=== PATIENT | male | born 1990 | race Two or more races ===

== ENCOUNTER 2022-07-08 03:34 | Emergency (ER) | payer MEDICAID, OTHER ==
[~2022-07-08] VITALS: Ht 172.7 cm; Wt 89.4 kg
[2022-07-08 04:10] VITALS: BP 153/75
--- NOTE | 2022-07-08 04:15 | NUR ---
EMT AT PT'S BEDSIDE TO CLEAN LAC TO R THUMB
[2022-07-08] MEDS ORDERED: LIDOCAINE 2% 20 ML MDV ONE (04:17)
[2022-07-08] MEDS ORDERED: TDAP [DIPH/PERTUSSIS/TET] 0.5 ML VIAL IM ONE ×2 (04:19→04:30)
--- NOTE | 2022-07-08 04:32 | NUR ---
DR BARBI CASTILLO AT PT'S BEDSIDE FOR SUTURES TO R THUMB
--- NOTE | 2022-07-08 04:45 | NUR ---
Patient discharged to [facility] custody in stable condition. Written and verbal after care instructions given. Patient verbalizes understanding of instruction.
== END 2022-07-08 04:51 | disposition home or self-care (01) ==
LOC: ER 03:37
DX: S61.011A Laceration without foreign body of right thumb without damage to nail, initial encounter (principal); Z60.2 Problems related to living alone; V43.52XA Car driver injured in collision with other type car in traffic accident, initial encounter; Y93.89 Activity, other specified; Y92.410 Unspecified street and highway as the place of occurrence of the external cause; Y99.8 Other external cause status
CPT/HCPCS: 99283; 12001; 90471; 90715; J3490